=== PATIENT | male | born 1945 | race Two or more races ===

== ENCOUNTER 2018-04-11 03:26 | Inpatient (IN) | payer MEDICARE, MEDICAID ==
[~2018-04-11] VITALS: Ht 165.1 cm; Wt 62.4 kg
--- NOTE | 2018-04-11 03:47 | NUR ---
PT IS IN CT.
--- NOTE | 2018-04-11 03:50 | NUR ---
PT BIB HIS DAUGHTER WITH A C/O VOMITTING BLOOD AND BLOODY STOOL. PT AMBULATED IN WITH A SLOW GAIT. PT WAS ASSISTED BY HIS DAUGHTER TO ER 5. PT WAS PLACED ON THE MONITOR AND CONTINUOS PULSE OX. DR. ASENCIO IS AT THE BEDSIDE.
[2018-04-11] MEDS ORDERED: PANTOPRAZOLE 80 MG in IV NS 0.9% 100 ML IV ONE (04:00)
[2018-04-11] MEDS ORDERED: OCTREOTIDE 50 MCG/ML AMPUL IV ONE (04:00)
[2018-04-11] MEDS ORDERED: PANTOPRAZOLE 40 MG VIAL IV ONE ×2 (04:00→05:00)
[2018-04-11] MEDS ORDERED: IV NS 0.9% 1,000 ML BAG IV ONE (04:00)
[2018-04-11] MEDS ORDERED: ONDANSETRON HCL/PF 4 MG/2 ML VIAL IVP ONE (04:00)
--- NOTE | 2018-04-11 04:02 | NUR ---
PT RETURNED FROM CT.
[2018-04-11] MEDS ORDERED: ONDANSETRON HCL/PF 4 MG/2 ML VIAL ONE (04:06)
[2018-04-11] MEDS ORDERED: OCTREOTIDE 100 MCG/ML VIAL ONE (04:06)
[2018-04-11] MEDS ORDERED: PANTOPRAZOLE 40 MG VIAL ONE ×2 (04:06→04:39)
--- NOTE | 2018-04-11 04:08 | NUR ---
PT REC'D MEDICATION FOR NAUSEA.
[2018-04-11 04:25] LABS: CALCIUM, SERUM 8.9 mg/dL (8.5-10.1); CARBON DIOXIDE 29 mmol/L (21-32); CHLORIDE 103 mmol/L (98-107); CREATININE 1.5 mg/dL (0.6-1.3); GLUCOSE 260 mg/dL (74-106); POTASSIUM 4.4 mmol/L (3.5-5.1); SODIUM SERUM 141 mmol/L (136-145); UREA NITROGEN, BLOOD 44 mg/dL (7-18)
[2018-04-11] MEDS ORDERED: ONDANSETRON HCL/PF 4 MG/2 ML VIAL IV ONE (04:30)
[2018-04-11 04:38] LABS: ALANINE AMINOTRANSFERASE 33 U/L (12-78); ALBUMIN 3.3 g/dL (3.4-5.0); ALKALINE PHOSPHATASE 97 U/L (46-116); ASPARTATE AMINOTRANSFERASE 16 U/L (15-37); BILIRUBIN,DIRECT 0.3 mg/dL (0.0-0.2); LIPASE 72 U/L (73-393); TOTAL PROTEIN, SERUM 6.4 g/dL (6.4-8.2)
[2018-04-11] MEDS ORDERED: PANTOPRAZOLE 80 MG in IV NS 0.9% 500 ML IV PRN ×2 (05:00→06:00)
--- NOTE | 2018-04-11 05:03 | NUR ---
PT WAS FEELING COLD AND REC'D ANOTHER BLANKET
[2018-04-11 05:12] LABS: BASOPHILS % (AUTO) 0.3 % (0.0-2.0); EOSINOPHILS % (AUTO) 0.3 % (0.0-6.0); HEMATOCRIT 36 % (39-51); HEMOGLOBIN 12.2 g/dL (13.5-17.5); LYMPHOCYTES # (AUTO) 0.9 /CMM (0.8-4.8); MEAN CORPUSCULAR HGB CONC 34 g/dl (31.0-36.0); MEAN CORPUSCULAR VOLUME 91 fL (80-96); MONOCYTES # (AUTO) 0.5 /CMM (0.1-1.30); MONOCYTES % (AUTO) 3.8 % (2.0-12.0); NEUTROPHILS # (AUTO) 11.4 /CMM (1.8-8.9); NEUTROPHILS % (AUTO) 88.6 % (43.0-81.0); PLATELET COUNT (AUTO) 135 /CMM (150-450); RED BLOOD CELL COUNT(AUTO) 3.98 MIL/uL (4.5-6.0); WHITE BLOOD COUNT (AUTO) 12.8 K/uL (4.3-11.0)
--- NOTE | 2018-04-11 05:25 | NUR ---
[place] FROM LAB, AT THE BEDSIDE FOR COAG REDRAW.
--- NOTE | 2018-04-11 05:39 | NUR ---
REPORT GIVEN TO JEANETH CRUZ
[2018-04-11] MEDS ORDERED: ONDANSETRON HCL/PF 4 MG/2 ML VIAL IVP PRN (06:00)
--- NOTE | 2018-04-11 06:20 | NUR ---
TELE/RN ADMITTING NOTES RECEIVED PT FROM ER, A/OX4, ON ROOM AIR, NO SOB NOTED. PLACED ON TELEMONITOR, SR HR 70S. PT VERBALIZED DISCOMFORT IN THE ABDOMEN, WITH PAIN SCALE OF 2/10, PER PT PAIN IS TOLERABLE. VS AND ASSESSMENT DONE. WITH ONGOING PROTONIX DRIP 80MG/500ML NS AT 52 ML/HR INFUSING WELL ON (R) AC G18 IV. PROTONIX DRIP ADJUSTED TO 50 MLS/HR ORDERED. ORIENTED TO ROOM AND USE OF CALL LIGHT. SAFETY MEASURES IN PLACED. CALL LIGHT WITHIN EASY REACH. WILL CONT TO MONITOR PER PT, PT REFUSED FLU VACCINES HE FEARS ADVERSE REACTION FROM PREVIOUS FLU VACCINES. PER PT, HE GOT PNEUMONIA VACCINE BUT UNABLE TO RECALL WHEN, PER PT WILL CHECK RECORDS AND FOLLOW UP
[2018-04-11 06:27] VITALS: BP 108/65
[2018-04-11] MEDS: IV NS 0.9% 1,000 ML IV PRN ×2 (06:33→20:48)
[2018-04-11 06:52] LABS: CALCIUM, SERUM 8.1 mg/dL (8.5-10.1); CARBON DIOXIDE 25 mmol/L (21-32); CHLORIDE 107 mmol/L (98-107); CREATININE 1.1 mg/dL (0.6-1.3); GLUCOSE 196 mg/dL (74-106); PHOSPHORUS 2.4 mg/dL (2.5-4.9); POTASSIUM 4.2 mmol/L (3.5-5.1); SODIUM SERUM 141 mmol/L (136-145); UREA NITROGEN, BLOOD 41 mg/dL (7-18)
[2018-04-11 07:04] LABS: CHOLESTEROL 87 mg/dL (<200); HDL CHOLESTEROL 42 mg/dL (40-60); LDL 32 mg/dL (0-99); TRIGLYCERIDES 74 mg/dL (30-150)
[2018-04-11 07:28] LABS: BASOPHILS % (AUTO) 0.1 % (0.0-2.0); HEMATOCRIT 34 % (39-51); HEMOGLOBIN 11.2 g/dL (13.5-17.5); LYMPHOCYTES # (AUTO) 0.7 /CMM (0.8-4.8); LYMPHOCYTES % (AUTO) 6.4 % (20.0-44.0); MEAN CORPUSCULAR HGB CONC 33 g/dl (31.0-36.0); MEAN CORPUSCULAR VOLUME 91 fL (80-96); MONOCYTES # (AUTO) 0.4 /CMM (0.1-1.30); MONOCYTES % (AUTO) 3.4 % (2.0-12.0); NEUTROPHILS # (AUTO) 9.4 /CMM (1.8-8.9); NEUTROPHILS % (AUTO) 90.1 % (43.0-81.0); PLATELET COUNT (AUTO) 130 /CMM (150-450); RED BLOOD CELL COUNT(AUTO) 3.67 MIL/uL (4.5-6.0); WHITE BLOOD COUNT (AUTO) 10.5 K/uL (4.3-11.0)
--- NOTE | 2018-04-11 07:30 | NUR ---
RN NOTES RECEIVED PATIENT IN BED ALERT, AWAKE, ORIENTED X4 WITH BREATHING NORMAL, EVEN AND UNLABORED. NO SOB NOTED. NO ACUTE DISTRESS NOTED. TELE MONITOR REVEALS SR, HR=66. IV L HAND IS PATENT AND INTACT, RUNNING PROTONIX DRIP PER ORDER. KEPT CLEAN,DRY AND INTACT. ALL NEEDS ATTENDED. SAFETY MEASURE OBSERVED. CALL LIGHT WITH IN REACH. WILL CONT TO MONITOR.
[2018-04-11] MEDS ORDERED: AMLO10TA4 PO (07:52)
[2018-04-11] MEDS ORDERED: METO25TA6 PO (07:52)
[2018-04-11] MEDS ORDERED: LOSA25TA27 PO (07:52)
[2018-04-11] MEDS ORDERED: ASPI-1152 PO (07:52)
[2018-04-11 08:00] VITALS: BP 99/54
[2018-04-11 09:57] LABS: BAND % (MANUAL) 1 % (0.0-5.0); LYMPHOCYTES % (MANUAL) 4 % (16-48); MONOCYTES % (MANUAL) 2 % (0-11.0); NEUTROPHILS % (MANUAL) 93 (42-76)
[2018-04-11 12:00] VITALS: BP 106/85
[2018-04-11 15:19] LABS: BASOPHILS % (AUTO) 0.2 % (0.0-2.0); EOSINOPHILS % (AUTO) 0.2 % (0.0-6.0); HEMATOCRIT 29 % (39-51); HEMOGLOBIN 9.7 g/dL (13.5-17.5); LYMPHOCYTES # (AUTO) 1.3 /CMM (0.8-4.8); LYMPHOCYTES % (AUTO) 20.8 % (20.0-44.0); MEAN CORPUSCULAR HGB CONC 34 g/dl (31.0-36.0); MEAN CORPUSCULAR VOLUME 91 fL (80-96); MONOCYTES # (AUTO) 0.5 /CMM (0.1-1.30); MONOCYTES % (AUTO) 8.3 % (2.0-12.0); NEUTROPHILS # (AUTO) 4.4 /CMM (1.8-8.9); NEUTROPHILS % (AUTO) 70.5 % (43.0-81.0); PLATELET COUNT (AUTO) 114 /CMM (150-450); RED BLOOD CELL COUNT(AUTO) 3.16 MIL/uL (4.5-6.0); WHITE BLOOD COUNT (AUTO) 6.3 K/uL (4.3-11.0)
[2018-04-11 16:00] VITALS: BP 111/63
[2018-04-11] MEDS ORDERED: K PHOS NEUTRAL 250 MG TABLET PO ONE (16:30)
[2018-04-11] MEDS ORDERED: AMLODIPINE BESYLATE 10 MG TABLET PO SCH ×2 (17:00)
[2018-04-11] MEDS: PANTOPRAZOLE 40 MG VIAL IV SCH (17:30)
[2018-04-11] MEDS: METOPROLOL TARTRATE 25 MG TABLET PO SCH (17:35)
[2018-04-11] MEDS: AMLODIPINE BESYLATE 5 MG TABLET PO SCH (17:35)
--- NOTE | 2018-04-11 19:07 | NUR ---
RN NOTES PATIENT ENDORSED TO NEXT SHIFT IN STABLE CONDITION FOR CONTINUITY OF CARE. WILL CONT TO MONITOR.
[2018-04-11 19:56] LABS: IRON, SERUM 60 ug/dl (50-175); TOTAL IRON BINDING CAPACITY 235 ug/dl (250-450)
[2018-04-11 20:00] VITALS: BP 109/59
--- NOTE | 2018-04-11 20:00 | NUR ---
RN INITIAL NOTES RECEIVED PT IN BED FAMILY AT BED SIDE , A/OX4, ON ROOM AIR, NO SOB NOTED. PLACED ON TELEMONITOR, SR HR 68. NO PAIN OR DISCOMFORT IN THE ABDOMEN. SAFETY MEASURES IN PLACED. CALL LIGHT WITHIN EASY REACH. WILL CONT TO MONITOR.
[2018-04-11 20:09] LABS: FERRITIN 422 ng/mL (8-388)
--- NOTE | 2018-04-11 22:00 | NUR ---
RN NOTES PT LEFT FLOOR FOR NUCLEAR TEST, ACCOMPANIED BY CHARGE NURSE UCHE.
--- NOTE | 2018-04-11 23:20 | NUR ---
RN NOTES PT RETURNED FOR NUCLEAR TEST. VSS, PT RESTING IN BED.
--- NOTE | 2018-04-11 23:52 | NUR ---
NM:GI BLEEDING IMAGES WAS COMPLETED. TECH:RB
[2018-04-12] VITALS (7 sets, daily range): BP systolic 106–115; BP diastolic 57–63
--- NOTE | 2018-04-12 00:30 | NUR ---
RN NOTES REPORT GIVEN TO RN RAYMOND FOR TANA, PT IN STABLE CONDITION.
--- NOTE | 2018-04-12 01:15 | NUR ---
TELE1/RN ASSUMED CARE FOR CONTINUITY OF CARE. PATIENT IS SLEEPING, APPEAR COMFORTABLE, BREATHING EVEN AND UNLABORED, IVF INFUSING WELL, CALL LIGHT IN REACH. WILL MONITOR.
--- NOTE | 2018-04-12 06:39 | NUR ---
TELE1/RN PATIENT IS AWAKE AT THIS TIME, BLOOD DRAW BEING DONE BY THE FENCE POST CUTTER, NO CHANGE IN CONDITION, ALL NEEDS ATTENDED AT THIS TIME, WILL CONTINUE TO MONITOR.
[2018-04-12 07:31] LABS: BASOPHILS % (AUTO) 0.7 % (0.0-2.0); EOSINOPHILS % (AUTO) 1.2 % (0.0-6.0); HEMATOCRIT 24 % (39-51); HEMOGLOBIN 8.3 g/dL (13.5-17.5); LYMPHOCYTES # (AUTO) 1.2 /CMM (0.8-4.8); LYMPHOCYTES % (AUTO) 22.4 % (20.0-44.0); MEAN CORPUSCULAR HGB CONC 34 g/dl (31.0-36.0); MEAN CORPUSCULAR VOLUME 91 fL (80-96); MONOCYTES # (AUTO) 0.5 /CMM (0.1-1.30); MONOCYTES % (AUTO) 9.2 % (2.0-12.0); NEUTROPHILS # (AUTO) 3.5 /CMM (1.8-8.9); NEUTROPHILS % (AUTO) 66.5 % (43.0-81.0); PLATELET COUNT (AUTO) 99 /CMM (150-450); RED BLOOD CELL COUNT(AUTO) 2.68 MIL/uL (4.5-6.0); WHITE BLOOD COUNT (AUTO) 5.3 K/uL (4.3-11.0)
[2018-04-12 07:48] LABS: CALCIUM, SERUM 7.8 mg/dL (8.5-10.1); CARBON DIOXIDE 28 mmol/L (21-32); CHLORIDE 112 mmol/L (98-107); GLUCOSE 121 mg/dL (74-106); MAGNESIUM 1.9 mg/dL (1.8-2.4); PHOSPHORUS 1.9 mg/dL (2.5-4.9); POTASSIUM 3.5 mmol/L (3.5-5.1); SODIUM SERUM 146 mmol/L (136-145); UREA NITROGEN, BLOOD 21 mg/dL (7-18)
--- NOTE | 2018-04-12 07:56 | NUR ---
RECIVED PT IN BED BREATHING EVEN NO ACUTE DISTRESS NOTED , PT DENIES ANY G I BLEED AT THIS TIME VITAL SIGNS STABLE , DENIES PAIN CLEAR LIQUID DIET GIVEN TELE MONITOR SR
[2018-04-12] MEDS: METOPROLOL TARTRATE 25 MG TABLET PO SCH ×2 (09:21→17:02)
[2018-04-12] MEDS: AMLODIPINE BESYLATE 5 MG TABLET PO SCH ×2 (09:21→17:02)
[2018-04-12] MEDS: PANTOPRAZOLE 40 MG VIAL IV SCH ×2 (09:22→17:02)
[2018-04-12] MEDS ORDERED: MAGNESIUM CITRATE 296 ML BOTTLE PO ONE (14:30)
[2018-04-12] MEDS ORDERED: NA PHOS,M-B/NA PHOS,DI-BA 1 EA ENEMA RC PRN (14:30)
[2018-04-12] MEDS ORDERED: PEG 3350/NA SULF,BICARB,CL/KCL 4,000 ML BOTTLE PO ONE (14:30)
[2018-04-12] MEDS: METRONIDAZOLE 500MG/ NS 100ML 500 MG in PREMIX 1 EA IV SCH ×2 (15:08→22:13)
[2018-04-12] MEDS: K PHOS NEUTRAL 250 MG TABLET PO SCH ×2 (17:00→22:13)
[2018-04-12 17:53] LABS: OCCULT BLOOD STOOL POSITIVE (NEGATIVE)
[2018-04-12 18:14] LABS: BASOPHILS % (AUTO) 0.6 % (0.0-2.0); EOSINOPHILS % (AUTO) 2.2 % (0.0-6.0); HEMATOCRIT 26 % (39-51); HEMOGLOBIN 8.7 g/dL (13.5-17.5); LYMPHOCYTES # (AUTO) 1.1 /CMM (0.8-4.8); LYMPHOCYTES % (AUTO) 20.6 % (20.0-44.0); MEAN CORPUSCULAR HGB CONC 34 g/dl (31.0-36.0); MEAN CORPUSCULAR VOLUME 91 fL (80-96); MONOCYTES # (AUTO) 0.5 /CMM (0.1-1.30); MONOCYTES % (AUTO) 8.8 % (2.0-12.0); NEUTROPHILS # (AUTO) 3.5 /CMM (1.8-8.9); NEUTROPHILS % (AUTO) 67.8 % (43.0-81.0); PLATELET COUNT (AUTO) 107 /CMM (150-450); RED BLOOD CELL COUNT(AUTO) 2.81 MIL/uL (4.5-6.0); WHITE BLOOD COUNT (AUTO) 5.1 K/uL (4.3-11.0)
--- NOTE | 2018-04-12 20:30 | NUR ---
SPEECH LANGUAGE SPECIALIST NOTES PT ARRIVED ONTO THE UNIT VIA WHEELCHAIR ACCOMPANIED BY CHILDREN. PT ALERT AND ORIENTED. PT DUE FOR EGD/COLONOSCOPY TOMORROW. BOWEL PREP COMPLETE, WILL ASSESS BMS. SAFETY PRECAUTIONS IN PLACE, BED IN LOWEST LOCKED POSITION, X2 SIDE RAILS UP AND CALL LIGHT WITHIN REACH. WILL CONTINUE TO MONITOR.
[2018-04-13] MEDS: IV NS 0.9% 1,000 ML IV PRN (01:46)
[2018-04-13] MEDS: METRONIDAZOLE 500MG/ NS 100ML 500 MG in PREMIX 1 EA IV SCH ×3 (05:31→21:40)
--- NOTE | 2018-04-13 06:53 | NUR ---
RN CLOSING NOTES PT AWAKE AND RESTING IN BED. NO COMPLAINTS OF PAIN SOB OR DISTRESS. PT DUE FOR EGD/COLONOSCOPY TODAY. BOWEL PREP COMPLETE. CONSENTS IN CHART. PT HAS A RIGHT AC #18 INTACT AND RUNNING NS @75ML/HR. PT NPO SINCE MIDNIGHT. SAFETY PRECAUTIONS IN PLACE, BED IN LOWEST LOCKED POSITION, X2 SIDE RAILS UP AND CALL LIGHT WITHIN REACH. WILL ENDORSE TO DAY SHIFT NURSE FOR CONTINUITY OF CARE.
--- NOTE | 2018-04-13 07:30 | NUR ---
RN MS NOTES PT IN BED, AWAKE, ALERT AND ORIENTED, NO COMPLAINT OF PAIN, RESPIRATIONS NORMAL, IV FLUIDS INFUSING WELL, NO N/V, CALL LIGHT WITHIN REACH, PLAN OF CARE DISCUSSED WITH PT, VERBALIZED UNDERSTANDING.
[2018-04-13] MEDS ORDERED: ANESTHESIA TRAY IN PYXIS 1 EA TRAY MC ONE (07:36)
[2018-04-13 07:42] LABS: BASOPHILS % (AUTO) 0.7 % (0.0-2.0); EOSINOPHILS % (AUTO) 2.5 % (0.0-6.0); HEMATOCRIT 24 % (39-51); LYMPHOCYTES # (AUTO) 1.1 /CMM (0.8-4.8); LYMPHOCYTES % (AUTO) 31.3 % (20.0-44.0); MEAN CORPUSCULAR HGB CONC 34 g/dl (31.0-36.0); MEAN CORPUSCULAR VOLUME 90 fL (80-96); MONOCYTES # (AUTO) 0.3 /CMM (0.1-1.30); MONOCYTES % (AUTO) 8.3 % (2.0-12.0); NEUTROPHILS % (AUTO) 57.2 % (43.0-81.0); PLATELET COUNT (AUTO) 100 /CMM (150-450); WHITE BLOOD COUNT (AUTO) 3.6 K/uL (4.3-11.0)
--- NOTE | 2018-04-13 07:51 | NUR ---
RN MS NOTES PT AWAKE, NOT IN PAIN OR DISTRESS, PICKED UP BY O.R. STAFF FOR EGD/COLONOSCOPY, LEFT VIA BED IN STABLE CONDITION.
[2018-04-13 07:52] LABS: CARBON DIOXIDE 26 mmol/L (21-32); CHLORIDE 110 mmol/L (98-107); CREATININE 0.9 mg/dL (0.6-1.3); GLUCOSE 105 mg/dL (74-106); POTASSIUM 3.3 mmol/L (3.5-5.1); SODIUM SERUM 144 mmol/L (136-145); UREA NITROGEN, BLOOD 9 mg/dL (7-18)
[2018-04-13 08:00] VITALS: BP 104/59
[2018-04-13] MEDS: AMLODIPINE BESYLATE 5 MG TABLET PO SCH ×2 (09:00→17:00)
[2018-04-13] MEDS: METOPROLOL TARTRATE 25 MG TABLET PO SCH ×2 (09:00→17:00)
[2018-04-13 09:02] LABS: PHOSPHORUS 2.6 mg/dL (2.5-4.9)
[2018-04-13 09:15] VITALS: BP 111/58
--- NOTE | 2018-04-13 09:15 | NUR ---
RN MS NOTES PT BACK FROM SURGERY, AWAKE, ALERT AND ORIENTED, DENIES PAIN, NOT IN DISTRESS, VITAL SIGNS TAKEN AND RECORDED, POST OP ORDERS RECEIVED FROM MD, NOTED AND CARRIED OUT.
[2018-04-13] MEDS: PANTOPRAZOLE 40 MG VIAL IV SCH ×2 (09:41→17:15)
[2018-04-13] MEDS ORDERED: POTASSIUM CHLORIDE 20 MEQ TAB.PRT.SR PO SCH (11:00)
[2018-04-13 13:00] VITALS: BP 102/57
--- NOTE | 2018-04-13 13:00 | NUR ---
RN MS NOTES PT IN BED, ASLEEP, EASY TO AROUSE, ALERT AND ORIENTED, DENIES PAIN, RESPIRATIONS NORMAL, IV FLUIDS INFUSING WELL, CALL LIGHT WITHIN REACH, TOLERATING CURRENT DIET.
[2018-04-13 16:00] VITALS: BP 108/57
--- NOTE | 2018-04-13 18:25 | NUR ---
RN MS NOTES PT IN BED, AWAKE, ALERT AND ORIENTED, NO COMPLAINT OF PAIN, NOT IN DISTRESS, NO EPISODE OF DARK STOOLS AT THIS TIME, TOLERATING CURRENT DIET WELL, IV FLUIDS INFUSING WELL, ALL NEEDS ATTENDED.
--- NOTE | 2018-04-13 19:05 | NUR ---
MS RN INITIAL NOTES RECEIVED PATIENT IN BED, WATCHING TV, ALERT, ORIENTED X 4. BREATHING EVEN AND UNLABORED. NOT IN ANY DISTRESS. NO COMPLAINTS OF PAIN OR DISCOMFORT OF THIS TIME. PERIPHERAL IV OF NS AT 75ML/HR. SAFETY MEASURES IN PLACE: BED IN LOW, LOCKED POSITION. CALL CISNEROS WITHIN REACH. PATIENT STABLE ENDORSED BY THE MORNING RN. WILL CONTINUE TO MONITOR ACCORDINGLY
[2018-04-13 20:00] VITALS: BP 118/58
[2018-04-14] MEDS: METRONIDAZOLE 500MG/ NS 100ML 500 MG in PREMIX 1 EA IV SCH ×2 (05:40→14:46)
[2018-04-14 06:13] LABS: BASOPHILS % (AUTO) 0.5 % (0.0-2.0); EOSINOPHILS % (AUTO) 2.4 % (0.0-6.0); HEMATOCRIT 24 % (39-51); HEMOGLOBIN 8.3 g/dL (13.5-17.5); LYMPHOCYTES # (AUTO) 1.1 /CMM (0.8-4.8); LYMPHOCYTES % (AUTO) 29.6 % (20.0-44.0); MEAN CORPUSCULAR HGB CONC 34 g/dl (31.0-36.0); MEAN CORPUSCULAR VOLUME 90 fL (80-96); MONOCYTES # (AUTO) 0.3 /CMM (0.1-1.30); MONOCYTES % (AUTO) 8.3 % (2.0-12.0); NEUTROPHILS # (AUTO) 2.2 /CMM (1.8-8.9); NEUTROPHILS % (AUTO) 59.2 % (43.0-81.0); PLATELET COUNT (AUTO) 117 /CMM (150-450); RED BLOOD CELL COUNT(AUTO) 2.68 MIL/uL (4.5-6.0); WHITE BLOOD COUNT (AUTO) 3.7 K/uL (4.3-11.0)
[2018-04-14 06:38] LABS: CALCIUM, SERUM 7.9 mg/dL (8.5-10.1); CARBON DIOXIDE 27 mmol/L (21-32); CHLORIDE 109 mmol/L (98-107); CREATININE 0.9 mg/dL (0.6-1.3); GLUCOSE 104 mg/dL (74-106); SODIUM SERUM 145 mmol/L (136-145); UREA NITROGEN, BLOOD 6 mg/dL (7-18)
--- NOTE | 2018-04-14 06:55 | NUR ---
MS RN CLOSING NOTES PATIENT RESTING IN BED, ALERT AND ORIENTED X 4. BREATHING EVEN AND UNLABORED. NO COMPLAINTS OF PAIN OR DISCOMFORT OF THIS TIME. IV ON RAC G#18, S/L, INTACT AND PATENT. ALL NEEDS ATTENDED TO. ALL DUE MEDICATIONS GIVEN ORDERED. CALL CISNEROS WITHIN REACH. BED IN LOW, LOCKED POSITION. WILL ENDORSE TANA TO ONCOMING RN.
[2018-04-14 08:00] VITALS: BP 133/67
--- NOTE | 2018-04-14 08:00 | NUR ---
MS RN NOTES PATIENT IN BED RESTING NO SOB OR ACUTE DISTRESS NOTED. PATIENT ALERT, ORIENTED X4. DENIES ANY PAIN OR DISCOMFORT. BED IN LOW LOCKED POSITION. CALL LIGHT WITHIN REACH. WILL CONTINUE TO MONITOR.
[2018-04-14] MEDS: PANTOPRAZOLE 40 MG VIAL IV SCH ×2 (08:39→16:21)
[2018-04-14] MEDS: METOPROLOL TARTRATE 25 MG TABLET PO SCH ×2 (08:40→16:21)
[2018-04-14] MEDS: AMLODIPINE BESYLATE 5 MG TABLET PO SCH ×2 (08:40→16:22)
[2018-04-14 10:20] LABS: *ANCANTIMYELOPEROXIDASE (MPO) <9.0 U/mL (0.0-9.0); *ANCANTIPROTEINASE 3 (PR-3) AB <3.5 U/mL (0.0-3.5)
[2018-04-14] MEDS: POTASSIUM CHLORIDE 20 MEQ TAB.PRT.SR PO SCH ×3 (10:46→16:22)
[2018-04-14 12:11] LABS: *ANCA ATYPICAL p-ANCA <1:20 titer (Neg:<1:20); *ANCA CYTOPLASMIC (C-ANCA) <1:20 titer (Neg:<1:20); *ANCA PERINUCLEAR (P-ANCA) <1:20 titer (Neg:<1:20)
[2018-04-14 16:00] VITALS: BP 103/61
[2018-04-14 16:22] VITALS: BP 103/61
--- NOTE | 2018-04-14 19:26 | NUR ---
MS RN NOTES PATIENT DISCHARGED WITH DAUGHTER PATIENT ALERT, ORIENTED X3 DISCHARGE TEACHING INSTRUCTIONS PROVIDED TO PATIENT VERBALIZED UNDERSTANDING. ALL BELONGINGS ACCOUNTED FOR . BELONGING LIST SIGNED. PRESCRIPTION PROVIDED TO PATIENT. DISCHARGE PROTOCOL FOLLOWED. VERBALIZED UNDERSTANDING. PERIPHERAL IV REMOVED. ID BAND REMOVED. PATIENTS ESCORTED TO CAR . Addendum: 04/14/18 at 1929 by LINDY AVILES RN DR[address] TAVAREZ OFFICE PHONE NUMBER PROVIDED FOR FOLLOW UP .
== END 2018-04-14 19:40 | disposition home or self-care (01) | DRG 377 ==
LOC: ER 03:35 → TELE1 05:57 → MEDSG1 04-12 09:50 → MED 04-12 20:22
PROVIDERS: ADMIT Registered Nurse; ATTEND Internal Medicine
PROC: 0DB78ZX Excision of Stomach, Pylorus, Via Natural or Artificial Opening Endoscopic, Diagnostic (ICD-10-PCS; principal; 2018-04-13)
PROC: 0DBP8ZZ Excision of Rectum, Via Natural or Artificial Opening Endoscopic (ICD-10-PCS; 2018-04-13)
DX: K29.71 Gastritis, unspecified, with bleeding (principal); N17.0 Acute kidney failure with tubular necrosis; D62 Acute posthemorrhagic anemia; E44.1 Mild protein-calorie malnutrition; E87.2 Acidosis; K64.8 Other hemorrhoids; K52.9 Noninfective gastroenteritis and colitis, unspecified; E86.0 Dehydration; K44.9 Diaphragmatic hernia without obstruction or gangrene; K57.30 Diverticulosis of large intestine without perforation or abscess without bleeding; K62.1 Rectal polyp; E11.9 Type 2 diabetes mellitus without complications; I10 Essential (primary) hypertension; Z68.22 Body mass index [BMI] 22.0-22.9, adult; D72.829 Elevated white blood cell count, unspecified
CPT/HCPCS: 36415; 80048-TC; 80061-TC; 80076-TC; 82272-TC; 82728-TC; 83520; 83540-TC; 83605-TC; 83690-TC; 83735-TC; 84100-TC; 84443-TC; 84484-TC; 85025-TC; 85730-TC; 86256; 86850-TC; 87040-TC; 87045-TC; 87081-TC; 87177; 87209; 88305-TC; 88313-TC; 88342; 89055; A4216; A9512; A9560; C9113; G0378; J2354; J2405; J2704; J3490; J7030; J7040